=== PATIENT | male | born 1960 | race Caucasian/White ===

== ENCOUNTER 2018-06-07 10:25 | Emergency (ER) | payer OTHER | END 2018-06-07 11:54 | disposition home or self-care (01) | LOC: FTE 10:25 | DX: R42 Dizziness and giddiness (principal); R53.83 Other fatigue; R50.9 Fever, unspecified; R05 Cough; R52 Pain, unspecified; E03.9 Hypothyroidism, unspecified | CPT/HCPCS: 99283; Z7502 ==

== ENCOUNTER 2018-09-25 10:47 | Emergency (ER) | payer OTHER ==
[2018-09-25 12:21] LABS: ADD MAN DIFF? NO
[2018-09-25 12:22] LABS: WHITE BLOOD COUNT 6.4 10^3/ul (4.8-10.8)
[2018-09-25 12:22] LABS: BASOPHILS % 0.6 % (0.0-2.0); EOSINOPHILS # 0.1 10^3/ul (0.0-0.5); EOSINOPHILS % 1.7 % (0.0-7.0); HEMATOCRIT 47.1 % (42.0-52.0); HEMOGLOBIN 15.3 g/dl (14.0-18.0); LYMPHOCYTES # 1.1 10^3/ul (0.8-2.9); LYMPHOCYTES % 16.9 % (15.0-51.0); MEAN CORPUSCULAR HEMOGLOBIN 27.8 pg (29.0-33.0); MEAN CORPUSCULAR HGB CONC 32.5 g/dl (32.0-37.0); MEAN CORPUSCULAR VOLUME 85.6 fl (82.0-101.0); MEAN PLATELET VOLUME 9.8 fl (7.4-10.4); MONOCYTE # 0.6 10^3/ul (0.3-0.9); MONOCYTES % 9.3 % (0.0-11.0); NEUTROPHIL # 4.6 10^3/ul (1.6-7.5); NEUTROPHILS % 71.2 % (39.0-77.0); PLATELET COUNT 278 10^3/UL (140-415); RED CELL DISTRIBUTION WIDTH 12.6 % (11.5-14.5)
[2018-09-25 12:41] LABS: ANION GAP 8 (5-13); BLOOD UREA NITROGEN 15 mg/dl (7-20); CALCIUM 9.9 mg/dl (8.4-10.2); CARBON DIOXIDE 27 mmol/L (21-31); CHLORIDE 107 mmol/L (97-110); CREATININE 0.81 mg/dl (0.61-1.24); Estimated GFR > 60 mL/min (>60); GLUCOSE 108 mg/dl (70-220); INR 0.91; POTASSIUM 4.3 mmol/L (3.5-5.1); PROTIME 12.4 Sec (11.9-14.9); SODIUM 142 mmol/L (135-144)
[2018-09-25 12:53] LABS: B-TYPE NATRIURETIC PEPTIDE 61 PG/ML (0-125); TROPONIN-I < 0.012 ng/ml (0.000-0.120)
[2018-09-25] MEDS: KETOROLAC 15 MG INJ IV (13:35)
[2018-09-25] MEDS: SOD CHLORIDE 0.9% 1,000 ML IV (13:35)
== END 2018-09-25 14:57 | disposition home or self-care (01) ==
LOC: E/R 10:47
DX: R42 Dizziness and giddiness (principal); E03.9 Hypothyroidism, unspecified; R55 Syncope and collapse
CPT/HCPCS: 36415; 71045; 80048; 83880; 84484; 85025; 85610; 93005; 99285-25

== ENCOUNTER 2019-01-10 11:02 | Emergency (ER) | payer OTHER ==
[2019-01-10] MEDS: ACETAMINOPHEN 500 MG TAB PO (11:50)
== END 2019-01-10 12:32 | disposition home or self-care (01) ==
LOC: FTE 12:32
DX: J02.9 Acute pharyngitis, unspecified (principal); E03.9 Hypothyroidism, unspecified
CPT/HCPCS: 99282; Z7502